=== PATIENT | female | born 1980 | race Caucasian/White ===

== ENCOUNTER 2017-11-16 10:52 | Emergency (ER) | payer OTHER ==
[~2017-11-16] VITALS: Ht 180.3 cm; Wt 145.2 kg
[~2017-11-16 10:52] MED LIST: ADVAIR 500-501 EACH INH; DOXYCYCLINE HYC20 MG PO; FINACEA50 GM; LEXAPRO20 MG PO; MICROGESTIN FE1 EAC1 PO; OMEPRAZOLE10 MG PO; SINGULAIR 10 MG10 M1 PO; SYNTHROID137 MCG PO; VENTOLIN HFA 1818 GM INH; XANAX 0.5 MG0.5 M1 PO; ZYRTEC10 M2 PO
[2017-11-16 15:31] VITALS: BP 131/72
[2017-11-16] MEDS ORDERED: OXYCODONE HCL 55 MG PO (15:33)
== END 2017-11-16 15:39 | disposition home or self-care (01) ==
LOC: ER 10:52
DX: S62.354A Nondisplaced fracture of shaft of fourth metacarpal bone, right hand, initial encounter for closed fracture (principal); F41.9 Anxiety disorder, unspecified; J45.909 Unspecified asthma, uncomplicated; E03.9 Hypothyroidism, unspecified; F32.9 Major depressive disorder, single episode, unspecified; Z90.49 Acquired absence of other specified parts of digestive tract; Z88.1 Allergy status to other antibiotic agents; Z88.8 Allergy status to other drugs, medicaments and biological substances; V89.2XXA Person injured in unspecified motor-vehicle accident, traffic, initial encounter; Y93.89 Activity, other specified; Y92.89 Other specified places as the place of occurrence of the external cause; Y99.8 Other external cause status

== ENCOUNTER 2017-11-18 08:52 | Emergency (ER) | payer OTHER ==
[~2017-11-18] VITALS: Ht 165.1 cm; Wt 147.4 kg
[~2017-11-18 08:52] MED LIST changes: +OXYCODONE HCL 55 MG PO
[2017-11-18 08:58] VITALS: BP 152/87
== END 2017-11-18 09:30 ==
LOC: ER 08:52
DX: S60.521A Blister (nonthermal) of right hand, initial encounter (principal); Z46.89 Encounter for fitting and adjustment of other specified devices; F41.9 Anxiety disorder, unspecified; J45.909 Unspecified asthma, uncomplicated; E03.9 Hypothyroidism, unspecified; F32.9 Major depressive disorder, single episode, unspecified; Z90.49 Acquired absence of other specified parts of digestive tract; Z88.1 Allergy status to other antibiotic agents; Z88.8 Allergy status to other drugs, medicaments and biological substances; X58.XXXA Exposure to other specified factors, initial encounter; Y93.89 Activity, other specified; Y92.89 Other specified places as the place of occurrence of the external cause; Y99.8 Other external cause status